=== PATIENT | male | born 1995 | race Caucasian/White ===

== ENCOUNTER 2019-05-31 05:32 | Day surgery (SDC) | payer OTHER ==
[2019-05-31] VITALS (22 sets, daily range): BP systolic 115–176; BP diastolic 62–98; PULSE 54–96; RESP 14–39; Ht 172.7 cm; Wt 105.0 kg
[~2019-05-31] VITALS: Ht 172.7 cm; Wt 105.0 kg
[~2019-05-31 05:32] MED LIST: CEFAZOLIN 2 GM/50 ML (PMX) 50 ML IVPB ONE; SOD CHLORIDE 0.9% 1,000 ML IV ONE
[2019-05-31] MEDS ORDERED: BUPIVACAINE 0.25%/EPI (SDV) 10 ML INJ ONE (07:04)
[2019-05-31] MEDS ORDERED: SEVOFLURANE 15 MIN ONE (07:27)
[2019-05-31] MEDS ORDERED: MIDAZOLAM 1 MG/ML 2 ML INJ ONE (07:57)
[2019-05-31] MEDS ORDERED: ROPIVACAINE 0.5 % 30 ML VIAL ONE (09:22)
[2019-05-31] MEDS ORDERED: ROCURONIUM 50 MG INJ ONE (09:24)
[2019-05-31] MEDS ORDERED: LIDOCAINE 2% (SDV) 5 ML INJ ONE (09:24)
[2019-05-31] MEDS ORDERED: PROPOFOL 20 ML ONE (09:24)
[2019-05-31] MEDS ORDERED: NEOSTIGMINE 3 MG/3 ML SYRINGE ONE (09:25)
[2019-05-31] MEDS ORDERED: GLYCOPYRROLATE 0.4 MG INJ ONE (09:25)
[2019-05-31] MEDS ORDERED: CEFAZOLIN 1 GM INJ ONE (09:25)
[2019-05-31] MEDS ORDERED: HYDROCODONE/APAP (5/325) TAB PO PRN ×2 (09:30)
[2019-05-31] MEDS ORDERED: morphine 2 MG INJ IV PRN (09:30)
[2019-05-31] MEDS ORDERED: ONDANSETRON 4 MG INJ IV PRN ×2 (09:30→10:00)
[2019-05-31] MEDS ORDERED: ONDANSETRON 4 MG INJ ONE ×2 (09:42→10:01)
[2019-05-31] MEDS ORDERED: MIDAZOLAM 1 MG/ML 2 ML INJ IV PRN (10:00)
[2019-05-31] MEDS ORDERED: HYDROmorphONE 1 MG/5 ML IV SYRINGE IV PRN (10:00)
[2019-05-31] MEDS ORDERED: DIPHENHYDRAMINE 50 MG INJ IV PRN (10:00)
[2019-05-31] MEDS ORDERED: FENTAnyl 50 MCG/ML VIAL IV PRN (10:00)
[2019-05-31] MEDS ORDERED: MEPERIDINE 25 MG INJ IV PRN (10:00)
[2019-05-31] MEDS ORDERED: KETOROLAC 30 MG INJ IV PRN (10:00)
[2019-05-31] MEDS ORDERED: OXYCODONE/ACETAMINOPHEN (5/325) TAB PO PRN ×2 (10:00)
[2019-05-31] MEDS ORDERED: METOCLOPRAMIDE 10 MG INJ IV PRN (10:00)
[2019-05-31] MEDS ORDERED: MEPERIDINE 25 MG INJ ONE (10:01)
[2019-05-31] MEDS: HYDROmorphONE 1 MG/5 ML IV SYRINGE IV PRN ×2 (10:26→10:35)
== END 2019-05-31 14:33 | disposition home or self-care (01) ==
LOC: SDS 05:32
PROVIDERS: ATTEND Surgery
DX: K80.10 Calculus of gallbladder with chronic cholecystitis without obstruction (principal); E66.01 Morbid (severe) obesity due to excess calories; Z68.35 Body mass index [BMI] 35.0-35.9, adult
CPT/HCPCS: 47562; 80053; 85025; 85610; 85730; 88304; J0690; J1170; J2175; J2250; J2405; J2710; J2765; J2795; J3010; Z7512; Z7610